=== PATIENT | male | born 1990 | race Two or more races ===

== ENCOUNTER 2019-10-11 22:43 | Emergency (ER) | payer OTHER ==
[~2019-10-11] VITALS: Ht 167.6 cm; Wt 98.4 kg
[2019-10-11] MEDS ORDERED: METOCLOPRAMIDE HCL 10 MG/2 ML VIAL ONE (22:58)
[2019-10-11] MEDS ORDERED: KETOROLAC TROMETHAMINE INJ 30 MG/ML VIAL ONE (22:58)
[2019-10-11] MEDS ORDERED: IV NS 0.9% 1,000 ML BAG IV ONE (23:00)
[2019-10-11] MEDS ORDERED: KETOROLAC TROMETHAMINE INJ 30 MG/ML VIAL IV ONE (23:00)
[2019-10-11] MEDS ORDERED: METOCLOPRAMIDE HCL 10 MG/2 ML VIAL IV ONE (23:00)
--- NOTE | 2019-10-11 23:05 | NUR ---
MATEUS TO ER BED 11. AAOX4. NOT IN RESP DISTRESS, BREATHING EVEN AND UNLABORED. CAME IN FOR HEADAACHE X 2 DAYS AND PAIN ON L LATERAL RIB AREA X 2 MONTHS. PT RATES IS HEADACHE 6/10 AND RIB AREA PAIN 8/10 AGGREVATED BY MOVEMENT. PT REPORTS HE HAD ALCOHOL TODAY. WAS AT THE BEDSIDE FOR EVAL. ORDERS RECEIVED NOTED AND CARRIED OUT.
--- NOTE | 2019-10-11 23:12 | NUR ---
xray at bedside
--- NOTE | 2019-10-11 23:30 | NUR ---
IV removed. Catheter intact and site benign. Pressure and 4x4 applied to site. No bleeding noted.
--- NOTE | 2019-10-11 23:35 | NUR ---
Patient discharged to home in stable condition. Written and verbal after care instructions given. Patient verbalizes understanding of instruction.
[2019-10-12 00:35] VITALS: BP 129/83
== END 2019-10-11 23:39 | disposition home or self-care (01) ==
LOC: ER 22:51
DX: R51 Headache (principal); F10.10 Alcohol abuse, uncomplicated; R07.81 Pleurodynia; E86.0 Dehydration; Y90.9 Presence of alcohol in blood, level not specified
CPT/HCPCS: 71100; 96361; 96374; 96375; 99284; J1885; J2765; J7030